=== PATIENT | male | born 1995 | race Caucasian/White ===

== ENCOUNTER 2018-10-16 21:19 | Emergency (ER) | payer BC ==
[2018-10-16 21:32] VITALS: TEMP 97.4
[2018-10-16] MEDS ORDERED: DIPH,PERTUS(ACELL)TETVAC-LF 0.5 ML VIAL IM ONE (21:58)
[2018-10-16 22:51] VITALS: BP 122/88; PULSE 97; RESP 20
--- NOTE | 2018-10-16 23:04 | ED ---
Fall HPI - General Chief Complaint: Fall Stated Complaint: Head injury Time Seen by Provider: 10/16/18 21:37 Source: family Mode of arrival: ambulatory - History of Present Illness Initial Comments: 23-year-old male patient presents to the emergency department today for evaluation after sustaining a head injury. Patient was riding his skateboard when he fell forward off the board and struck the left side of his head on the ground. Patient did have bleeding from the scalp. He was repetitive questioning and not answering questions appropriately some friends brought him in for further evaluation. Patient does not recall the event. Friend who was bystander states he witnessed the entire event and patient did not lose consciousness. He fell from the skateboard at ground height. He was not ejected from the skateboard. Patient is unsure when his last tetanus vaccine was given. Patient is reporting some mild pain to the left parietal scalp. He denies any blurred vision, double vision, nausea, or vomiting. States he is having tingling to the left upper extremity. He denies any neck or back pain. Denies any other injuries. GCS is 15 currently. Patient denies any chest pain, shortness of breath, dizziness, weakness, abdominal pain, nausea, vomiting, or difficulties with bowel movements or urination. - Related Data Allergies Allergy/AdvReac Type Severity Reaction Status Date / Time No Known Allergies Allergy Verified 10/16/18 22:43 Review of Systems ROS Statement: Those systems with pertinent positive or pertinent negative responses have been documented in the HPI. ROS Other: All systems not noted in ROS Statement are negative. General Exam Limitations: no limitations General appearance: alert, in no apparent distress, other (This is a well- developed, well-nourished adult male patient in no acute distress. Vital signs upon presentation are temperature 97.4F, pulse 82, respirations 18, blood pressure 154/76, pulse ox 98% on room air.) Head exam: Present: other (Patient has abrasion noted to the left parietal scalp) Eye exam: Present: normal appearance, PERRL, EOMI. Absent: scleral icterus, conjunctival injection, nystagmus, periorbital swelling ENT exam: Present: normal exam, normal oropharynx, mucous membranes moist, TM's normal bilaterally (Left cerumen impaction) Neck exam: Present: normal inspection, full ROM, other (Nontender, no step-off, no deformity to firm midline palpation of the posterior cervical spine. Full range of motion without pain or limitation.). Absent: tenderness, meningismus, lymphadenopathy Respiratory exam: Present: normal lung sounds bilaterally. Absent: respiratory distress, wheezes, rales, rhonchi, stridor Cardiovascular Exam: Present: regular rate, normal rhythm, normal heart sounds. Absent: systolic murmur, diastolic murmur, rubs, gallop, clicks GI/Abdominal exam: Present: soft, normal bowel sounds. Absent: distended, tenderness, guarding, rebound, rigid Back exam: Present: normal inspection, other (Nontender, no step-off, no deformity to firm midline palpation of the thoracic and lumbar vertebrae. Full range of motion without pain or limitation.). Absent: vertebral tenderness Neurological exam: Present: alert, oriented X3, CN II-XII intact, other (Strength in all 4 extremities is 5/5.) Psychiatric exam: Present: normal affect, normal mood Skin exam: Present: warm, dry, intact, normal color. Absent: rash Course Vital Signs 10/16/18 10/16/18 21:25 22:50 Temperature 97.4 F L Pulse Rate 82 97 Respiratory 18 20 Rate Blood Pressure 154/76 122/88 O2 Sat by Pulse 98 98 Oximetry Medical Decision Making - Medical Decision Making 23-year-old male patient presents to the emergency department today for evaluation after experiencing a fall from a skateboard with head injury. Physical examination does reveal a superficial abrasion to the left parietal scalp. No bony step-off or deformity noted to palpation around the injury. Patient is currently alert and oriented 3 however does not recall the incident of falling off his skateboard. CT of the brain was obtained and showed no acute abnormalities. Cervical spine x-ray was obtained and showed no acute osseous abnormalities. Did discuss findings and results with the patient. We did discuss diagnosis of concussion. He was educated regarding activity restrictions. He is instructed to follow-up with his primary care physician for recheck Thursday. Return parameters were discussed in detail. He verbalizes understanding and agrees with this plan. Father will be driving patient home. - Radiology Data Radiology results: report reviewed 3 views of the cervical spine are obtained. Report was reviewed in its entirety. Impression by Dr. Kellogg shows no acute osseous abdomen abnormality. Disposition Clinical Impression: Concussion, Scalp abrasion Disposition: HOME SELF-CARE Condition: Good Instructions (If sedation given, give patient instructions): Concussion (ED), Abrasion (ED) Additional Instructions: Take Tylenol and Motrin for pain control. Decrease mental and physical stimulation including screen time to allow your brain to heal. Follow-up with the primary care physician for recheck in 1-2 days. Return to the emergency department immediately for any new, worsening, or concerning symptoms. Is patient prescribed a controlled substance at d/c from ED?: No Referrals: None,Stated [Primary Care Provider] - 1-2 days Time of Disposition: 00:19
--- NOTE | 2018-10-16 23:20 | CT ---
EXAM: CT Head Without Intravenous Contrast CLINICAL HISTORY: ITS.REASON CT Reason: Pain TECHNIQUE: Axial computed tomography images of the head/brain without intravenous contrast. CTDI is 49.1 mGy and DLP is 1066 mGy-cm. This CT exam was performed using one or more of the following dose reduction techniques: automated exposure control, adjustment of the mA and/or kV according to patient size, and/or use of iterative reconstruction technique. COMPARISON: None. FINDINGS: Brain: Unremarkable. No hemorrhage. No significant white matter disease. No edema. Ventricles: Unremarkable. No ventriculomegaly. Bones/joints: Unremarkable. No acute fracture. Soft tissues: Small left parietal scalp contusion. Sinuses: Unremarkable as visualized. No acute sinusitis. Mastoid air cells: Unremarkable as visualized. No mastoid effusion. IMPRESSION: 1. No intracranial hemorrhage or other acute intracranial abnormality. 2. Small left parietal scalp contusion.
--- NOTE | 2018-10-17 00:13 | XR ---
EXAM: XR Cervical Spine, 4 or 5 Views CLINICAL HISTORY: ITS.REASON XR Reason: Pain TECHNIQUE: Frontal, lateral and oblique views of the cervical spine. COMPARISON: None. FINDINGS: Vertebrae: Unremarkable. No acute fracture. Normal alignment. Disc spaces: No acute findings. No significant narrowing. Soft tissues: Unremarkable. IMPRESSION: No acute osseous abnormality. If there is clinical concern for cervical spine fracture, recommend evaluation with CT.
== END 2018-10-17 00:49 | disposition home or self-care (01) ==
LOC: EC 21:19
DX: S06.0X9A Concussion with loss of consciousness of unspecified duration, initial encounter (principal); S00.03XA Contusion of scalp, initial encounter; H61.22 Impacted cerumen, left ear; Z23 Encounter for immunization; V00.131A Fall from skateboard, initial encounter; Y93.51 Activity, roller skating (inline) and skateboarding
CPT/HCPCS: 70450; 72050; 90471; 90715; 99284

== ENCOUNTER 2021-08-12 15:30 | Emergency (ER) | payer BC, OTHER ==
[2021-08-12 16:03] VITALS: BP 111/79; PULSE 95; RESP 18; TEMP 99.3
[2021-08-12] MEDS ORDERED: SODIUM CHLORIDE 0.9% 1,000 ML IV STA (16:52)
[2021-08-12] MEDS ORDERED: KETOROLAC 15 MG/ML 1 ML VIAL IVP STA (16:53)
--- NOTE | 2021-08-12 17:07 | ED ---
General Adult HPI - General Source: patient, family, RN notes reviewed Mode of arrival: ambulatory Limitations: no limitations <Tonio Mcclellan - Last Filed: 08/12/21 19:17> <Bessie Craven - Last Filed: 08/17/21 16:29> - General Chief complaint: ENT Stated complaint: Ear Infection Time Seen by Provider: 08/12/21 16:12 - History of Present Illness Initial comments: 26-year-old male presents to the emergency room for a chief complaint of right ear pain. Patient has had right ear pain for 2-3 days now. Patient states yesterday he went to urgent care where they flushed out his ear and started him on an antibiotic drop. Patient did do the strep yesterday but didn't do it today because it was painful and he didn't want to touch his ear. He took Motrin about 11 hours prior to arrival however nothing since. Patient denies. Patient denies trismus.Patient has no other complaints at this time including shortness of breath, chest pain, abdominal pain, nausea or vomiting, headache, or visual changes. (Tonio Mcclellan) - Related Data Previous Rx's Medication Instructions Recorded Amoxicillin 875 mg PO Q12HR #20 tablet 08/12/21 Allergies Allergy/AdvReac Type Severity Reaction Status Date / Time No Known Allergies Allergy Verified 08/12/21 19:10 Review of Systems ROS Other: All systems not noted in ROS Statement are negative. <Tonio Mcclellan - Last Filed: 08/12/21 19:17> ROS Other: All systems not noted in ROS Statement are negative. <Bessie Craven - Last Filed: 08/17/21 16:29> ROS Statement: Those systems with pertinent positive or pertinent negative responses have been documented in the HPI. Past Medical History Past Medical History: No Reported History History of Any Multi-Drug Resistant Organisms: None Reported Past Surgical History: No Surgical Hx Reported Past Psychological History: No Psychological Hx Reported Smoking Status: Never smoker Past Alcohol Use History: None Reported Past Drug Use History: None Reported <Tonio Mcclellan - Last Filed: 08/12/21 19:17> General Exam Limitations: no limitations General appearance: alert, in no apparent distress Head exam: Present: atraumatic Eye exam: Present: normal appearance, PERRL, EOMI. Absent: scleral icterus, conjunctival injection ENT exam: Present: normal exam, normal oropharynx, mucous membranes moist. Absent: TM's normal bilaterally (unable to visualize tympanic membrane of the right ear), normal external ear exam (Patient has mild edema of the external auditory canal with serosanguineous drainage noted) Neck exam: Present: normal inspection, full ROM. Absent: tenderness Respiratory exam: Present: normal lung sounds bilaterally. Absent: respiratory distress, wheezes Cardiovascular Exam: Present: regular rate, normal rhythm, normal heart sounds Neurological exam: Present: alert <Tonio Mcclellan - Last Filed: 08/12/21 19:17> Course Vital Signs 08/12/21 16:01 Temperature 99.3 F Pulse Rate 95 Respiratory 18 Rate Blood Pressure 111/79 O2 Sat by Pulse 100 Oximetry Medical Decision Making - Lab Data Result diagrams: 08/12/21 17:07 08/12/21 17:07 <Tonio Mcclellan - Last Filed: 08/12/21 19:17> - Lab Data Result diagrams: 08/12/21 17:07 08/12/21 17:07 <Bessie Craven - Last Filed: 08/17/21 16:29> - Medical Decision Making Vitals are stable. HPI physical exam as documented. Patient does have an edematous external auditory canal with slight drainage. CBC CMP unremarkable. CT IAC shows extensive increased density in the right external auditory canal consistent with otitis externa. No evidence of mastoiditis. Middle ear st ructures appear intact. Ear wick was placed and patient was encouraged to continue his ofloxacin as he had only had 1 dose yesterday and did not take it today. As I am unable to completely visualize the tympanic membrane I will start patient on amoxicillin however very low suspicion that this involves a tympanic membrane rupture. Patient will need to follow up with ENT. He will return here for any worsening symptoms. (Tonio Mcclellan) I was available for consultation in the emergency department. The history and physical exam were done by the midlevel provider. I was consulted for this patients care. I reviewed the case with the midlevel provider and based on the ir presentation of the patient, I agree with the assessment, medical decision making and plan of care as documented. Chart was dictated using [employer] dictation software. Attempts were made to correct any dictation errors however some typographical errors may persist. Patient was seen during a national state of emergency due to the Covid-19 pandemic. (Bessie Craven) - Lab Data Lab Results 08/12/21 08/12/21 Range/Units 17:07 17:07 WBC 8.8 (3.8-10.6) k/uL RBC 5.45 (4.30-5.90) m/uL Hgb 17.5 (13.0-17.5) gm/dL Hct 49.5 (39.0-53.0) % MCV 90.8 (80.0-100.0) fL MCH 32.2 (25.0-35.0) pg MCHC 35.4 (31.0-37.0) g/dL RDW 11.7 (11.5-15.5) % Plt Count 167 (150-450) k/uL MPV 7.4 Neutrophils % 80 % Lymphocytes % 13 % Monocytes % 6 % Eosinophils % 1 % Basophils % 0 % Neutrophils # 7.0 (1.3-7.7) k/uL Lymphocytes # 1.1 (1.0-4.8) k/uL Monocytes # 0.5 (0-1.0) k/uL Eosinophils # 0.1 (0-0.7) k/uL Basophils # 0.0 (0-0.2) k/uL Sodium 137 (137-145) mmol/L Potassium 3.4 L (3.5-5.1) mmol/L Chloride 103 (98-107) mmol/L Carbon Dioxide 22 (22-30) mmol/L Anion Gap 12 mmol/L BUN 13 (9-20) mg/dL Creatinine 0.99 (0.66-1.25) mg/dL Est GFR (CKD-EPI)AfAm >90 (>60 ml/min/1.73 sqM) Est GFR (CKD-EPI)NonAf >90 (>60 ml/min/1.73 sqM) Glucose 101 H (74-99) mg/dL Calcium 9.8 (8.4-10.2) mg/dL Total Bilirubin 1.2 (0.2-1.3) mg/dL AST 22 (17-59) U/L ALT 15 (4-49) U/L Alkaline Phosphatase 91 (38-126) U/L Total Protein 8.3 H (6.3-8.2) g/dL Albumin 4.9 (3.5-5.0) g/dL Disposition Is patient prescribed a controlled substance at d/c from ED?: No Time of Disposition: 19:17 <Tonio Mcclellan - Last Filed: 08/12/21 19:17> <Bessie Craven - Last Filed: 08/17/21 16:29> Clinical Impression: Ear pain, right, Otitis externa Disposition: HOME SELF-CARE Condition: Good Instructions (If sedation given, give patient instructions): Otitis Externa (E D) Additional Instructions: Please continue your ofloxacin drops as directed. This is the most important part of your treatment. Take antibiotic as directed. Alternate Motrin and Tylenol up to every 3 hours for pain. If pain is severe take Tylenol [address] taking this. Return to the emergency room. Follow-up with your doctor as well as ENT in the next several days. Prescriptions: Amoxicillin 875 mg PO Q12HR #20 tablet Referrals: Abdullahi Bunch MD [STAFF PHYSICIAN] - 1-2 days
[2021-08-12 17:15] LABS: Basophils % (A) 0 %; Eosinophils # (A) 0.1 k/uL (0-0.7); Eosinophils % (A) 1 %; HCT 49.5 % (39.0-53.0); HGB 17.5 gm/dL (13.0-17.5); Lymphocytes # (A) 1.1 k/uL (1.0-4.8); Lymphocytes % (A) 13 %; MCH 32.2 pg (25.0-35.0); MCHC 35.4 g/dL (31.0-37.0); MCV 90.8 fL (80.0-100.0); Mean Platelet Volume 7.4; Monocytes # (A) 0.5 k/uL (0-1.0); Monocytes % (A) 6 %; Neutrophils % (A) 80 %; Platelet Count 167 k/uL (150-450); RBC 5.45 m/uL (4.30-5.90); RDW 11.7 % (11.5-15.5); WBC 8.8 k/uL (3.8-10.6)
[2021-08-12 17:23] LABS: ALT 15 U/L (4-49); AST 22 U/L (17-59); African American GFR (CKD) >90 (>60 ml/min/1.73 sqM); Albumin 4.9 g/dL (3.5-5.0); Alkaline Phosphatase 91 U/L (38-126); Anion Gap 12 mmol/L; Blood Urea Nitrogen 13 mg/dL (9-20); Calcium 9.8 mg/dL (8.4-10.2); Carbon Dioxide 22 mmol/L (22-30); Chloride 103 mmol/L (98-107); Glucose 101 mg/dL (74-99); Non-African American GFR(CKD) >90 (>60 ml/min/1.73 sqM); Potassium 3.4 mmol/L (3.5-5.1); Sodium 137 mmol/L (137-145); Total Bilirubin 1.2 mg/dL (0.2-1.3); Total Protein 8.3 g/dL (6.3-8.2)
--- NOTE | 2021-08-12 18:38 | CT ---
EXAMINATION TYPE: CT iac w con DATE OF EXAM: 08/12/2021 COMPARISON: None HISTORY: Right ear pain. CT DLP: 150 mGycm Automated exposure control for dose reduction was used. CONTRAST: Performed with IV Contrast, patient injected with 100 mL of Isovue M300. Images obtained through the temporal bones with IV contrast. There is normal aeration of the mastoid air cells. There is almost complete opacification of the righ t external auditory canal. There is no evidence of a posterior fossa mass. Internal auditory canals appear normal. There is no e vidence of cerebellopontine angle mass. There is bilateral normal aeration of the epitympanic recess. There is normal aeration of the middle ear cavity bilaterally. I see no focal bone destruction. IMPRESSION: Extensive increased density in the right external auditory canal consistent with otitis externa. No e vidence of mastoiditis. Middle ear structures appear intact.
[2021-08-12] MEDS ORDERED: ACET/COD 300 MG/30 MG STARTER PACK 6 TAB BTL PO STA (19:15)
[2021-08-12] MEDS ORDERED: AMOXICILLIN 875 MG TAB PO STA (19:15)
== END 2021-08-12 19:42 | disposition home or self-care (01) ==
LOC: EC 15:30
DX: H60.91 Unspecified otitis externa, right ear (principal)
CPT/HCPCS: 36415; 80053; 85025; 70481; 99283; 96374; J1885; Q9967